=== PATIENT | male | born 1955 | race Caucasian/White ===

== ENCOUNTER 2020-05-09 09:44 | Emergency (ER) | payer MEDICARE ==
[2020-05-09 10:57] LABS: #Eosinphils 0.2 thou/uL (0.0-0.7); #Lymphocytes 1.3 thou/uL (1.20-3.40); #Monocytes 0.7 thou/uL (0.11-0.59); #Neutrophils 6.7 thou/uL (1.40-6.50); %Basophils 0.5 % (0.0-1.0); %Eosinophils 2.6 % (0.0-10.0); %Lymphocytes 13.9 % (21.0-51.0); %Monocytes 8.2 % (0.0-10.0); %Neutrophils 74.8 % (42.0-75.0); Hemoglobin 14.4 g/dL (14.0-18.0); Mean Corpuscular HGB CONC 33.8 g/dL (32.0-36.0); Mean Corpuscular Hemoglobin 32.6 pg (27.0-31.0); Mean Corpuscular Volume 96.3 fL (78.0-98.0); Mean Platelet Volume 7.5 fL (7.4-10.4); Platelet Count 199 thou/uL (130-400); RBC Distribution Width 12.3 % (11.5-14.5); Red Blood Cell (RBC) Count 4.44 mill/uL (4.70-6.10)
[2020-05-09 11:19] LABS: ALT (SGPT) 16 U/L (8-55); AST (SGOT) 14 U/L (5-34); Albumin 3.8 g/dL (3.4-4.8); Alkaline Phosphatase 46 U/L (40-110); Anion Gap 12 mmol/L (10-20); BUN (Urea Nitrogen) 11 mg/dL (8.4-25.7); Bilirubin, Total 0.5 mg/dL (0.2-1.2); Calc. Creatinine Clearance 0 mL/min (70-130); Calcium 8.9 mg/dL (7.8-10.44); Carbon Dioxide 26 mmol/L (23-31); Globulin 2.5 g/dL (2.4-3.5); Glucose 82 mg/dL (80-115); Lipase 45 U/L (8-78); Potassium 3.8 mmol/L (3.5-5.1); Protein, Total 6.3 g/dL (5.8-8.1); Sodium 139 mmol/L (136-145)
[2020-05-09 11:29] LABS: Chloride 105 mmol/L (98-107)
[2020-05-09 11:46] LABS: Bilirubin Negative (Negative); Blood, Urine 1+ (Negative); Clarity Extra Turbid (Clear); Glucose, Urine (Dipstick) Normal (Negative); Ketone, Urine Negative (Negative); Leukocyte 500 Leu/uL (Negative); Nitrite 2+ (Negative); Protein, Urine (Dipstick) 100 mg/dL (Neg-Trace); Specific Gravity, Urine 1.023 (1.002-1.036); Squamous Epithelial None Seen HPF (0-3); Urobilinogen Normal mg/dL (Less than 2); WBC/HPF Greater than 50 HPF (0-3)
[2020-05-09 11:53] LABS: Bacteria/HPF 3+ HPF (None Seen)
--- NOTE | 2020-05-09 12:51 | CT ---
CT OF THE ABDOMEN AND PELVIS WITH IV CONTRAST INDICATION: History of prostatectomy in February 2020 now with pain upon urination COMPARISON: None FINDINGS: ABDOMEN: Lung bases: Clear Liver: No focal lesion. Gallbladder: Surgically absent Pancreas: Normal. Adrenal glands: Normal. Spleen: Normal. Kidneys and ureters: Normal. No hydronephrosis. Vasculature: There are mild vascular calcifications seen involving the visualized vasculature. Lymph nodes:No lymphadenopathy. Free fluid in abdomen:No free fluid is evident. PELVIS: Small and large bowel: There is gas scattered colonic diverticula without evidence of active divertic ulitis. There is a moderate amount of retained stool within the colon. There is a focal area of narrowing involving the ascending colon which may be related to area of focal peristalsis Appendix:Normal Bladder: Normal. Rectal and perirectal soft tissues:Normal. Reproductive structures: The prostate is surgically absent Free fluid in pelvis: r there is a 3.6 x 2.4 cm hypodense lesion within the left hemipelvis adjacent to the left external iliac vasculature. An additional 1.1 cm hypodensity is seen adjacent to the left common femoral vasculature. There is a 1.5 cm hypodensity adjacent to the right common femoral v asculature. Lymphadenopathy pelvis: No definite pathologically enlarged lymph nodes are grossly evident. Osseous structures: There is osteonecrosis involving the right femoral head without evidence of subch ondral collapse. There is a hip screw and sideplate within the proximal right femur. There is diffuse osteopenia. There is scattered degenerative and osteoarthritic change. Soft tissues:Normal. IMPRESSION: 1. Postsurgical change of a radical prostatectomy. There are small hypodense, near fluid density, les ions seen adjacent to the left iliac vasculature, left common femoral vascular right common femoral vascular suspicious for small fluid collections, possibly postsurgical in nature, related to small se romas or potentially small lymphovascular malformations. These do not have the appearance of lymphadenopathy. Follow-up nonemergent CT or MRI of the pelvis with contrast is recommended document stability or resolution. 2. Focal region of narrowing involving the ascending colon is likely related to focal peristalsis; ho wever, underlying circumferential mass lesion is difficult to exclude on the provided image. Would recommend correlation with the patient's history for colon screening in appropriate colon screening i f indicated. 3. 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
[2020-05-09] MEDS ORDERED: Iopamidol-370 76% 500 ML 1 ML ONE (13:41)
== END 2020-05-09 13:45 | disposition home or self-care (01) ==
LOC: ERS 09:44
DX: N32.0 Bladder-neck obstruction (principal); N39.0 Urinary tract infection, site not specified
CPT/HCPCS: 36415; 74177; 80053; 81003; 81015; 83690; 85025; Q9967

== ENCOUNTER 2020-05-11 03:44 | Emergency (ER) | payer MEDICARE ==
[2020-05-11 06:14] LABS: Anion Gap 14 mmol/L (10-20); BUN (Urea Nitrogen) 11 mg/dL (8.4-25.7); Calc. Creatinine Clearance 0 mL/min (70-130); Calcium 9.6 mg/dL (7.8-10.44); Carbon Dioxide 26 mmol/L (23-31); Chloride 104 mmol/L (98-107); Glucose 117 mg/dL (80-115); Potassium 4.7 mmol/L (3.5-5.1); Sodium 139 mmol/L (136-145)
== END 2020-05-11 06:33 | disposition home or self-care (01) ==
LOC: ERS 03:44
DX: R33.9 Retention of urine, unspecified (principal); Z85.46 Personal history of malignant neoplasm of prostate; Z79.899 Other long term (current) drug therapy
CPT/HCPCS: 36415; 51702; 80048

== ENCOUNTER 2020-06-09 08:45 | Day surgery (SDC) | payer MEDICARE ==
[2020-06-08 15:17] VITALS: BMI 25.4
[2020-06-09 10:05] VITALS: BP 115/81; TEMP 97.8
--- NOTE | 2020-06-09 15:49 | CT ---
Suprapubic catheter placement CT-guided Conscious sedation: At least 50 minutes spent with the patient for conscious sedation. FINDINGS: After explaining the procedure and answering all questions, limited CT imaging of the pelvi s was performed. Urinary bladder was partially distended. More distention was needed for safe catheter insertion. Sterile technique, buffered local anesthesia, CT guidance, conscious sedation, and an anterior suprap ubic approach were used to carefully advance a 22-gauge spinal needle into the bladder lumen. A small amount of 1% lidocaine and approximately 120 cc sterile saline was instilled into the bladder v ia the needle. Repeat imaging showed better bladder distention. A suprapubic anterior midline approach with partial blunt dissection and trocar technique used to adv ance a 12 [place] Avila catheter into the urinary bladder. Position confirmed with CT. Balloon was inflated with sterile water. Secured externally with 0 silk suture and clear urine left draining to g ravity. Patient tolerated the procedure well and was eventually dismissed in good condition. IMPRESSION : Technically successful CT-guided suprapubic catheter placement.
--- NOTE | 2020-06-10 15:06 | CT ---
Suprapubic catheter placement CT-guided Conscious sedation: At least 50 minutes spent with the patient for conscious sedation. FINDINGS: After explaining the procedure and answering all questions, limited CT imaging of the pelvi s was performed. Urinary bladder was partially distended. More distention was needed for safe catheter insertion. Sterile technique, buffered local anesthesia, CT guidance, conscious sedation, and an anterior suprap ubic approach were used to carefully advance a 22-gauge spinal needle into the bladder lumen. A small amount of 1% lidocaine and approximately 120 cc sterile saline was instilled into the bladder v ia the needle. Repeat imaging showed better bladder distention. A suprapubic anterior midline approach with partial blunt dissection and trocar technique used to adv ance a 12 [place] Avila catheter into the urinary bladder. Position confirmed with CT. Balloon was inflated with sterile water. Secured externally with 0 silk suture and clear urine left draining to g ravity. Patient tolerated the procedure well and was eventually dismissed in good condition. IMPRESSION : Technically successful CT-guided suprapubic catheter placement. Transcribed Date/Time: 06/10/2020 3:05 PM
== END 2020-06-09 12:50 | disposition home or self-care (01) ==
LOC: CT 08:45
PROVIDERS: ATTEND Urology
PROC: 0T9B7ZZ Drainage of Bladder, Via Natural or Artificial Opening (ICD-10-PCS; principal; 2020-06-09)
DX: R33.9 Retention of urine, unspecified (principal); N32.0 Bladder-neck obstruction; N39.3 Stress incontinence (female) (male); N52.31 Erectile dysfunction following radical prostatectomy; Z85.46 Personal history of malignant neoplasm of prostate; Z88.8 Allergy status to other drugs, medicaments and biological substances
CPT/HCPCS: 51102; 77002; C2627; J2250; J3010

== ENCOUNTER 2020-06-11 06:07 | Day surgery (SDC) | payer MEDICARE ==
[2020-06-10 08:22] VITALS: BMI 25.4
[~2020-06-11 06:07] MED LIST: Fentanyl 100 MCG/2 ML VIAL ONE; Midazolam HCl 2 mg/2 ml Vial ONE; Sodium Bicarbonate 2.5 MEQ/5 ML VIAL ONE
[2020-06-11] MEDS ORDERED: STERILE WATER FS SCH (07:15)
[2020-06-11] MEDS ORDERED: TRIAMCINOLONE ACETONIDE FS SCH (07:15)
[2020-06-11] MEDS ORDERED: Levofloxacin 500 mg/D5W 100 ml Premix Bag ONE (07:29)
[2020-06-11] MEDS ORDERED: Fentanyl 100 MCG/2 ML VIAL ONE (07:33)
[2020-06-11] MEDS ORDERED: B & O ONE (09:15)
[2020-06-11] MEDS ORDERED: Dexamethasone 20 MG/5 ML VIAL ONE (09:28)
[2020-06-11] MEDS ORDERED: PROPOFOL 200 MG/20 ML VIAL ONE (09:28)
[2020-06-11] MEDS ORDERED: diphenhydrAMINE 50 MG/ML VIAL ONE (09:28)
[2020-06-11] MEDS ORDERED: Ondansetron PF 4 MG/2 ML Vial ONE (09:28)
[2020-06-11] MEDS ORDERED: Meperidine HCl/PF 25 MG/ML VIAL ONE (09:46)
== END 2020-06-11 11:42 | disposition home or self-care (01) ==
LOC: SDC 06:07
PROVIDERS: ATTEND Urology
PROC: 0TB Urinary System, Excision (ICD-10-PCS; principal; 2020-06-11)
PROC: 3E0 Administration, Physiological Systems and Anatomical Regions, Introduction (ICD-10-PCS; 2020-06-11)
DX: N32.0 Bladder-neck obstruction (principal); N39.3 Stress incontinence (female) (male); N52.31 Erectile dysfunction following radical prostatectomy; Z85.46 Personal history of malignant neoplasm of prostate; Z79.899 Other long term (current) drug therapy; Z88.3 Allergy status to other anti-infective agents
CPT/HCPCS: J1100; J1200; J1956; J2175; J2405; J2704; J3010; J3301

== ENCOUNTER 2020-07-27 14:43 | Outpatient (CLI) | payer MEDICARE ==
[2020-06-08 13:32] LABS: Bilirubin Neg (Negative); Blood, Urine Negative (Negative); Clarity Clear (Clear); Glucose, Urine (Dipstick) Normal (Negative); Ketone, Urine Negative (Negative); Leukocyte 500 (Negative); Nitrite Negative (Negative); Protein, Urine (Dipstick) Negative (Neg-Trace); Specific Gravity, Urine 1.015 (1.002-1.036); Urobilinogen Normal mg/dL (Less than 2)
[2020-06-08 13:34] LABS: Hemoglobin 15.5 g/dL (14.0-18.0); Mean Corpuscular Hemoglobin 31.1 PG (27.0-33.0); Mean Corpuscular Volume 91.4 fl (80.0-100.0); Mean Platelet Volume 9.8 fl (7.4-10.4); Platelet Count 262 10x3/uL (130-400); RBC Distribution Width 12.9 % (11.5-14.5); Red Blood Cell (RBC) Count 4.99 10x6/uL (4.40-5.80); White Blood Cell (WBC) Count 6.9 10x3/uL (4.5-11.0)
[2020-06-08 13:43] LABS: INR-International Normal Ratio 1.1; PTT 28.3 sec (22.0-33.0); Prothrombin Time 11.1 sec (9.5-12.1)
[2020-06-08 13:44] LABS: Urine Culture Reflex No No
[2020-06-08 13:48] LABS: RBC/HPF None Seen HPF (0-3); Squamous Epithelial None Seen HPF (0-3); WBC/HPF None Seen HPF (0-3)
[2020-06-08 13:49] LABS: Bacteria/HPF None Seen HPF (None Seen)
[2020-06-08 14:07] LABS: Anion Gap 15 mmol/L (10-20); BUN (Urea Nitrogen) 11 mg/dL (8.4-25.7); Calc. Creatinine Clearance 0 mL/min (70-130); Calcium 9.9 mg/dL (7.8-10.44); Carbon Dioxide 25 mmol/L (23-31); Chloride 102 mmol/L (98-107); Glucose 131 mg/dL (80-115); Potassium 3.9 mmol/L (3.5-5.1); Sodium 138 mmol/L (136-145)
[2020-06-08 23:45] LABS: SARS-CoV-2 PCR by NAA Not Detected (NotDetected)
[2020-07-27 16:50] LABS: Mean Corpuscular HGB CONC 34.2 g/dL (32.0-36.0); Mean Corpuscular Hemoglobin 31.1 pg (27.0-33.0); Mean Corpuscular Volume 90.9 fl (81.2-95.1); Mean Platelet Volume 9.8 fl (7.4-10.4); Platelet Count 228 10x3/uL (150-450); RBC Distribution Width 13.2 % (11.5-14.5); White Blood Cell (WBC) Count 6.4 10x3/uL (3.5-10.5)
[2020-07-27 16:58] LABS: Anion Gap 12 mmol/L (10-20); BUN (Urea Nitrogen) 15 mg/dL (8.4-25.7); Calc. Creatinine Clearance 0 mL/min (70-130); Calcium 8.9 mg/dL (7.8-10.44); Carbon Dioxide 30 mmol/L (23-31); Chloride 104 mmol/L (98-107); Glucose 95 mg/dL (80-115); Sodium 142 mmol/L (136-145)
[2020-07-27 17:09] LABS: PTT 29.3 sec (22.0-33.0); Prothrombin Time 10.7 sec (9.5-12.1)
[2020-07-28 01:27] LABS: SARS-CoV-2 PCR by NAA Not Detected (NotDetected)
== END 2020-07-27 14:44 | disposition home or self-care (01) ==
LOC: LABBT 14:43
PROVIDERS: ATTEND Urology
DX: Z01.818 Encounter for other preprocedural examination (principal); C61 Malignant neoplasm of prostate; N32.0 Bladder-neck obstruction; R33.8 Other retention of urine; N39.3 Stress incontinence (female) (male); N52.31 Erectile dysfunction following radical prostatectomy; R33.9 Retention of urine, unspecified; Z20.822 Contact with and (suspected) exposure to COVID-19
CPT/HCPCS: 80048; 81001; 85027; 85610; 85730; 87086; 93005; U0003; U0005; 87635; 93010

== ENCOUNTER 2020-07-30 06:57 | Day surgery (SDC) | payer MEDICARE ==
[2020-07-29 09:17] VITALS: BMI 25.8
[2020-07-30] MEDS ORDERED: Sodium Chloride 0.9% 100 ML ONE (09:25)
[2020-07-30] MEDS ORDERED: cefTRIAXone\\ROCEPHIN 1 GM VIAL ONE (09:25)
[2020-07-30] MEDS ORDERED: Triamcinolone 40 MG/ML VIAL IM SCH (09:30)
[2020-07-30] MEDS ORDERED: cefTRIAXone\\ROCEPHIN 1 GM in Sodium Chloride 0.9% 100 ML IVPB SCH (09:30)
[2020-07-30] MEDS ORDERED: B & O ONE (10:01)
[2020-07-30] MEDS ORDERED: Fentanyl 100 MCG/2 ML VIAL ONE ×3 (10:07→11:41)
[2020-07-30] MEDS ORDERED: Triamcinolone 40 MG/ML VIAL ONE (10:14)
[2020-07-30] MEDS ORDERED: Dexamethasone 20 MG/5 ML VIAL ONE (10:29)
[2020-07-30] MEDS ORDERED: PROPOFOL 200 MG/20 ML VIAL ONE (10:29)
[2020-07-30] MEDS ORDERED: Ondansetron PF 4 MG/2 ML Vial ONE (10:29)
[2020-07-30] MEDS ORDERED: Lidocaine 1% PF 5 ML VIAL ONE (10:29)
== END 2020-07-30 14:10 | disposition home or self-care (01) ==
LOC: SDC 06:57
PROVIDERS: ATTEND Urology
PROC: 0TND8ZZ Release Urethra, Via Natural or Artificial Opening Endoscopic (ICD-10-PCS; principal; 2020-07-30)
PROC: 3E0K83Z Introduction of Anti-inflammatory into Genitourinary Tract, Via Natural or Artificial Opening Endoscopic (ICD-10-PCS; 2020-07-30)
DX: N32.0 Bladder-neck obstruction (principal); R33.9 Retention of urine, unspecified; N39.3 Stress incontinence (female) (male); N52.31 Erectile dysfunction following radical prostatectomy; Z85.46 Personal history of malignant neoplasm of prostate; Z79.899 Other long term (current) drug therapy; Z88.3 Allergy status to other anti-infective agents
CPT/HCPCS: J0696; J1100; J2405; J2704; J3010; J3301; J3490

== ENCOUNTER 2020-11-20 08:07 | Day surgery (SDC) | payer MEDICARE ==
[2020-11-13 14:00] VITALS: BMI 26.6
[2020-11-20 08:21] LABS: #Eosinphils 0.5 thou/uL (0.0-0.7); #Lymphocytes 1.6 thou/uL (1.20-3.40); #Monocytes 0.6 thou/uL (0.11-0.59); #Neutrophils 4.1 thou/uL (1.40-6.50); %Basophils 0.5 % (0.0-1.0); %Eosinophils 6.8 % (0.0-10.0); %Lymphocytes 23.6 % (21.0-51.0); %Monocytes 8.1 % (0.0-10.0); Hemoglobin 15.9 g/dL (14.0-18.0); Mean Corpuscular HGB CONC 33.4 g/dL (32.0-36.0); Mean Corpuscular Hemoglobin 32.4 pg (27.0-31.0); Mean Platelet Volume 7.1 fL (7.4-10.4); Platelet Count 232 thou/uL (130-400); White Blood Cell (WBC) Count 6.8 thou/uL (4.8-10.8)
[2020-11-20 08:27] LABS: Prothrombin Time 12.7 sec (12.0-14.7)
[2020-11-20 08:28] LABS: PTT 34.5 sec (22.9-36.1)
[2020-11-20 09:54] VITALS: TEMP 98.1
== END 2020-11-20 13:15 | disposition home or self-care (01) ==
LOC: CT 08:07
PROVIDERS: ATTEND Urology
PROC: 0T9B3ZZ Drainage of Bladder, Percutaneous Approach (ICD-10-PCS; principal; 2020-11-20)
DX: N35.919 Unspecified urethral stricture, male, unspecified site (principal); N32.0 Bladder-neck obstruction; N52.31 Erectile dysfunction following radical prostatectomy; N39.3 Stress incontinence (female) (male); Z85.46 Personal history of malignant neoplasm of prostate; Z79.899 Other long term (current) drug therapy; Z88.3 Allergy status to other anti-infective agents
CPT/HCPCS: 51102; 77002; 85025; 85610; 85730; C2627

== ENCOUNTER 2020-12-03 06:18 | Day surgery (SDC) | payer MEDICARE ==
[2020-12-03] MEDS ORDERED: Levofloxacin 500 mg/D5W 100 ml Premix Bag ONE (07:00)
[2020-12-03] MEDS ORDERED: TRIAMCINOLONE ACETONIDE IJ SCH (07:15)
[2020-12-03] MEDS ORDERED: SODIUM CHLORIDE 0.9% IJ SCH (07:15)
[2020-12-03] MEDS ORDERED: B & O ONE (08:20)
[2020-12-03] MEDS ORDERED: Fentanyl 100 MCG/2 ML VIAL ONE ×2 (08:30→09:23)
[2020-12-03] MEDS ORDERED: Ondansetron PF 4 MG/2 ML Vial ONE (08:33)
[2020-12-03] MEDS ORDERED: PROPOFOL 200 MG/20 ML VIAL ONE (08:33)
[2020-12-03] MEDS ORDERED: Lidocaine 1% PF 5 ML VIAL ONE (08:33)
[2020-12-03] MEDS ORDERED: Dexamethasone 20 MG/5 ML VIAL ONE (08:33)
== END 2020-12-03 11:08 | disposition home or self-care (01) ==
LOC: SDC 06:18
PROVIDERS: ATTEND Urology
PROC: 0TND8ZZ Release Urethra, Via Natural or Artificial Opening Endoscopic (ICD-10-PCS; principal; 2020-12-03)
DX: N32.0 Bladder-neck obstruction (principal); N39.3 Stress incontinence (female) (male); N52.31 Erectile dysfunction following radical prostatectomy; Z85.46 Personal history of malignant neoplasm of prostate; Z79.899 Other long term (current) drug therapy; Z88.3 Allergy status to other anti-infective agents
CPT/HCPCS: J1100; J1956; J2405; J2704; J3010; J3301

== ENCOUNTER 2021-07-18 12:19 | Emergency (ER) | payer MEDICARE ==
[2021-07-18] MEDS ORDERED: Acetaminophen 500 MG TAB ONE (15:41)
[2021-07-18] MEDS ORDERED: Ibuprofen 200 MG TAB ONE (15:41)
[2021-07-18 22:09] LABS: SARS-CoV-2 PCR by NAA Not Detected (NotDetected)
== END 2021-07-18 16:35 | disposition home or self-care (01) ==
LOC: ERS 12:19
DX: J10.1 Influenza due to other identified influenza virus with other respiratory manifestations (principal); Z20.822 Contact with and (suspected) exposure to COVID-19
CPT/HCPCS: 87804 ×2; U0003; U0005; 99284